=== PATIENT | female | born 1995 | race African-American/Black ===

== ENCOUNTER 2020-12-07 13:46 | Emergency (ER) | payer OTHER | END 2020-12-07 16:00 | disposition home or self-care (01) | LOC: FER 13:46 | DX: S90.32XA Contusion of left foot, initial encounter (principal); W20.8XXA Other cause of strike by thrown, projected or falling object, initial encounter; Y92.89 Other specified places as the place of occurrence of the external cause; Y99.0 Civilian activity done for income or pay | CPT/HCPCS: 73630 ==